=== PATIENT | female | born 2000 | race Caucasian/White ===

== ENCOUNTER 2025-06-19 18:51 | Emergency (ER) | payer MEDICAID ==
[~2025-06-19] VITALS: Ht 152.4 cm; Wt 92.0 kg
[2025-06-19 19:00] VITALS: O2SAT 100
[2025-06-19] MEDS: KETOROLAC 15MG/ML VIAL IM ONE (21:15)
[2025-06-19] MEDS: ACETAMINOPHEN 325MG TABLET PO ONE (21:52)
[2025-06-19] MEDS ORDERED: NAPR-1176 MT (22:22)
[2025-06-19 22:35] VITALS: BP 116/66; PULSE 78; RESP 18; TEMP 36.7; O2SAT 99
== END 2025-06-19 22:38 | disposition home or self-care (01) ==
LOC: ER 18:51
DX: S93.129A Dislocation of metatarsophalangeal joint of unspecified toe(s), initial encounter (principal); W01.0XXA Fall on same level from slipping, tripping and stumbling without subsequent striking against object, initial encounter; Y93.01 Activity, walking, marching and hiking; Y92.89 Other specified places as the place of occurrence of the external cause; Y99.8 Other external cause status
CPT/HCPCS: 99284; 26770; 81025; 73130; 73120; 96372; J1885